=== PATIENT | male | born 1990 | race African-American/Black ===

== ENCOUNTER 2020-08-05 18:59 | Emergency (ER) | payer MEDICAID ==
[~2020-08-05] VITALS: Ht 180.3 cm; Wt 56.7 kg
[2020-08-05 19:00] VITALS: BP_SYST 140
[2020-08-05] MEDS ORDERED: LIDOCAINE PF 1% 30ML(POUR BTL) INJ ONE (19:45)
[2020-08-05] MEDS ORDERED: DIPH-TET-PERTUS Vaccine 0.5 ML VIAL (ADACEL) I.M. ONE (19:45)
[2020-08-05] MEDS ORDERED: LIDOCAINE 1%, 20 ML MDV 20 ML ONE (19:59)
[2020-08-05] MEDS ORDERED: BACITRACIN 1 GM OINT TP ONE (21:47)
[2020-08-05 22:16] VITALS: BP_SYST 114
== END 2020-08-05 22:17 | disposition home or self-care (01) ==
LOC: SED 18:59
DX: S61.512A Laceration without foreign body of left wrist, initial encounter (principal); W26.8XXA Contact with other sharp object(s), not elsewhere classified, initial encounter; Y93.89 Activity, other specified; Y92.89 Other specified places as the place of occurrence of the external cause; Y99.8 Other external cause status
CPT/HCPCS: 12001; 90471; 90715; 99283; J2001

== ENCOUNTER 2020-08-15 12:31 | Emergency (ER) | payer MEDICAID ==
[~2020-08-15] VITALS: Ht 180.3 cm; Wt 55.8 kg
[2020-08-15 12:35] VITALS: BP_SYST 101
[2020-08-15] MEDS: BACITRACIN 1 GM OINT TP ONE (13:05)
[2020-08-15 13:13] VITALS: BP_SYST 105
== END 2020-08-15 13:13 | disposition home or self-care (01) ==
LOC: SED 12:31
DX: S61.512D Laceration without foreign body of left wrist, subsequent encounter (principal); X58.XXXD Exposure to other specified factors, subsequent encounter
CPT/HCPCS: 99282